=== PATIENT | male | born 1985 | race Hispanic/Latino ===

== ENCOUNTER 2019-03-13 13:13 | Emergency (ER) | payer OTHER ==
[~2019-03-13] VITALS: Ht 195.6 cm; Wt 111.1 kg
[2019-03-13 13:40] VITALS: TEMP 98.1
[2019-03-13] MEDS ORDERED: CEPH500C20 PO (13:50)
[2019-03-13 15:35] VITALS: BP 148/90
== END 2019-03-13 15:35 | disposition home or self-care (01) ==
LOC: ED 13:13
DX: L03.012 Cellulitis of left finger (principal)
CPT/HCPCS: 99283